=== PATIENT | female | born 1965 | race Caucasian/White ===

== ENCOUNTER → 2016-10-02 | Outpatient (CLI) | payer OTHER ==
[~2016-10-02] MED LIST: MONT1TAB3 PO; MTR600X PO; MULT-506 PO; OXYC-57 PO
[2016-10-02 12:15] LABS: BLOOD UREA NITROGEN 16 mg/dl (7-18); BUN/CREATININE RATIO 17.6 (10-20); CALCIUM 8.7 mg/dl (8.5-10.1); CARBON DIOXIDE 27 mmol/L (21-32); CHLORIDE 110 mmol/L (98-107); CHOLESTEROL 206 mg/dl (0-200); CREATININE 0.91 mg/dl (0.60-1.20); GLUCOSE 97 mg/dl (70-99); SODIUM 144 mmol/L (136-145)
[2016-10-02 12:18] LABS: CHOLESTEROL/HDL RATIO 5.9; HDL CHOLESTEROL 35 mg/dl; LDL CHOLESTEROL CALCULATED 119 mg/dl; TRIGLYCERIDES 258 mg/dl (0-150); VERY LOW DENSITY LIPOPROT CALC 52 mg/dl
== END | disposition home or self-care (01) ==
LOC: C.LABPBG 08:56
PROVIDERS: ATTEND Family Medicine
DX: Z00.00 Encounter for general adult medical examination without abnormal findings (principal); Z13.220 Encounter for screening for lipoid disorders

== ENCOUNTER → 2017-09-17 | Outpatient (CLI) | payer OTHER ==
[2017-09-17 13:36] LABS: BLOOD UREA NITROGEN 18 mg/dl (7-18); CALCIUM 9.1 mg/dl (8.5-10.1); CARBON DIOXIDE 29 mmol/L (21-32); GLUCOSE 98 mg/dl (70-99); POTASSIUM 3.9 mmol/L (3.5-5.1); SODIUM 140 mmol/L (136-145)
[2017-09-17 13:40] LABS: CHOLESTEROL 226 mg/dl (0-200); LDL CHOLESTEROL CALCULATED 160 mg/dl
== END | disposition home or self-care (01) ==
LOC: C.LABPBG 08:40
PROVIDERS: ATTEND Family Medicine
DX: R79.82 Elevated C-reactive protein (CRP) (principal); E78.5 Hyperlipidemia, unspecified

== ENCOUNTER → 2017-10-07 | Outpatient (CLI) | payer OTHER ==
[2017-10-07 16:47] LABS: BASO % 0.3 %; BASO ABS # 0.03 K/uL (0-0.2); EOS % 3.8 %; HEMATOCRIT 37.2 % (37-47); HEMOGLOBIN 11.8 g/dL (12.0-16.0); IG# 0.03 K/uL (0.00-0.02); LYMPH % 27.3 %; LYMPH ABS # 2.84 K/uL (1.2-3.4); MEAN CORPUSCULAR HEMOGLOBIN 24.4 pg (25-34); MEAN CORPUSCULAR HGB CONC 31.7 g/dl (32-36); MEAN PLATELET VOLUME 11.2 fL (7.4-10.4); MONO ABS # 0.73 K/uL (0.11-0.59); NEUT % 61.3 %; NEUT ABS # 6.38 K/uL (1.4-6.5); PLATELET COUNT 303 K/uL (130-400); RED CELL DISTRIBUTION WIDTH CV 14.9 % (11.5-14.5); RED CELL DISTRIBUTION WIDTH SD 42.1 fL (36.4-46.3); WHITE BLOOD COUNT 10.41 K/uL (4.8-10.8)
== END | disposition home or self-care (01) ==
LOC: C.LABPBG 14:24
PROVIDERS: ATTEND Family Medicine
DX: M79.672 Pain in left foot (principal); M79.89 Other specified soft tissue disorders; L53.9 Erythematous condition, unspecified

== ENCOUNTER → 2017-10-25 | Outpatient (CLI) | payer OTHER ==
[2017-10-25 16:42] LABS: BASO % 0.6 %; BASO ABS # 0.07 K/uL (0-0.2); EOS % 3.8 %; EOS ABS # 0.45 K/uL (0-0.5); HEMATOCRIT 35.8 % (37-47); HEMOGLOBIN 11.3 g/dL (12.0-16.0); IG# 0.04 K/uL (0.00-0.02); LYMPH ABS # 2.88 K/uL (1.2-3.4); MEAN CELL VOLUME 76.3 fL (80-100); MEAN CORPUSCULAR HEMOGLOBIN 24.1 pg (25-34); MEAN CORPUSCULAR HGB CONC 31.6 g/dl (32-36); MEAN PLATELET VOLUME 10.8 fL (7.4-10.4); MONO % 6.8 %; MONO ABS # 0.82 K/uL (0.11-0.59); NEUT % 64.5 %; NEUT ABS # 7.73 K/uL (1.4-6.5); PLATELET COUNT 297 K/uL (130-400); RED CELL DISTRIBUTION WIDTH CV 15.3 % (11.5-14.5); RED CELL DISTRIBUTION WIDTH SD 42.6 fL (36.4-46.3); WHITE BLOOD COUNT 11.99 K/uL (4.8-10.8)
== END | disposition home or self-care (01) ==
LOC: C.LABPBG 14:35
PROVIDERS: ATTEND Family Medicine
DX: R10.2 Pelvic and perineal pain (principal); N93.9 Abnormal uterine and vaginal bleeding, unspecified

== ENCOUNTER → 2017-10-27 | Outpatient (CLI) | payer OTHER ==
--- NOTE | 2017-10-27 15:45 | DIAGNOSTIC IMAGING REPORT ---
PELVIC COMPLETE NON OB HISTORY: 51 years-old Female N93.9 Vaginal bleeding acute vaginal bleeding with history of prior hysterectomy. Patient also reports prior left-sided oophorectomy COMPARISON: None available TECHNIQUE: Multiple real-time sonographic images of the deep pelvic structures were obtained transabdominally and transvaginally assessing grayscale appearance, color and spectral flow FINDINGS: TRANSABDOMINAL: Uterus not visualized. Complex cystic structure about the right adnexum. Arterial inflow and venous outflow seen about the right ovary. TRANSVAGINAL: Left ovary and uterus are not visualized. Right ovary overall measures 9.8 x 9.2 x 10.3 cm with arterial inflow and venous outflow documented. There is a complex thick-walled hypoechoic lesion about the right adnexum measuring 7.5 x 8.2 x 8.0 cm with thin internal septations and diffuse internal low level echoes. No significant free pelvic fluid. IMPRESSION: 1. Prior hysterectomy and left-sided oophorectomy. 2. Complex lesion about the right ovary measuring up to 8.0 cm suggests endometrioma or hemorrhagic cyst. Follow-up pelvic ultrasound within 2 menstrual cycles or 8 weeks recommended to further evaluate. No evidence of ovarian torsion. The above report was generated using voice recognition software. It may contain grammatical, syntax or spelling errors. Electronically signed by: Gómez Musa M.D. 10/27/2017 3:44 PM Dictated Date/Time: 10/27/2017 3:39 PM
== END | disposition home or self-care (01) ==
LOC: C.ULTR 14:43
PROVIDERS: ATTEND Family Medicine
DX: N93.9 Abnormal uterine and vaginal bleeding, unspecified (principal); Z90.710 Acquired absence of both cervix and uterus; Z90.721 Acquired absence of ovaries, unilateral

== ENCOUNTER → 2018-01-03 | Outpatient (CLI) | payer OTHER ==
[~2018-01-03] MED LIST changes: +ASPI1TAB66 PO; +HYDR-5688 PO; +LORA-741 PO; -MTR600X PO; -OXYC-57 PO; +PROC10TA PO; +[UNRECOGNIZED DRUG - CODE] SL
[2018-01-03 16:47] LABS: MEAN PLATELET VOLUME 9.8 fL (7.4-10.4); PLATELET COUNT 171 K/uL (130-400)
[2018-01-03 16:59] LABS: ALBUMIN 3.2 gm/dl (3.4-5.0); ALKALINE PHOSPHATASE 93 U/L (45-117); ALT/SGPT 38 U/L (12-78); AST/SGOT 24 U/L (15-37); BLOOD UREA NITROGEN 13 mg/dl (7-18); CALCIUM 8.5 mg/dl (8.5-10.1); CARBON DIOXIDE 26 mmol/L (21-32); CREATININE 0.79 mg/dl (0.60-1.20); GLUCOSE 102 mg/dl (70-99); POTASSIUM 3.7 mmol/L (3.5-5.1); SODIUM 138 mmol/L (136-145); TOTAL PROTEIN 6.9 gm/dl (6.4-8.2)
[2018-01-03 17:19] LABS: BASO % 0.6 %; BASO ABS # 0.02 K/uL (0-0.2); EOS % 2.3 %; EOS ABS # 0.08 K/uL (0-0.5); HEMATOCRIT 29.4 % (37-47); HEMOGLOBIN 9.4 g/dL (12.0-16.0); LYMPH % 54.3 %; LYMPH ABS # 1.85 K/uL (1.2-3.4); MEAN CELL VOLUME 83.8 fL (80-100); MEAN CORPUSCULAR HEMOGLOBIN 26.8 pg (25-34); MONO % 7.6 %; MONO ABS # 0.26 K/uL (0.11-0.59); NEUT % 35.2 %; RED CELL DISTRIBUTION WIDTH CV 18.2 % (11.5-14.5); RED CELL DISTRIBUTION WIDTH SD 56.2 fL (36.4-46.3); WHITE BLOOD COUNT 3.41 K/uL (4.8-10.8)
== END | disposition home or self-care (01) ==
LOC: C.LABPBG 11:29
PROVIDERS: ATTEND Obstetrics & Gynecology Gynecologic Oncology
DX: N13.30 Unspecified hydronephrosis (principal); R42 Dizziness and giddiness; C56.1 Malignant neoplasm of right ovary

== ENCOUNTER → 2018-01-13 | Outpatient (CLI) | payer OTHER ==
[2018-01-13 13:44] LABS: HEMATOCRIT 32.6 % (37-47); HEMOGLOBIN 10.4 g/dL (12.0-16.0); MEAN CELL VOLUME 86.7 fL (80-100); MEAN CORPUSCULAR HEMOGLOBIN 27.7 pg (25-34); MEAN CORPUSCULAR HGB CONC 31.9 g/dl (32-36); MEAN PLATELET VOLUME 9.5 fL (7.4-10.4); PLATELET COUNT 211 K/uL (130-400); RED CELL DISTRIBUTION WIDTH CV 20.5 % (11.5-14.5); WHITE BLOOD COUNT 4.48 K/uL (4.8-10.8)
[2018-01-13 13:53] LABS: ALBUMIN 3.1 gm/dl (3.4-5.0); ALKALINE PHOSPHATASE 115 U/L (45-117); ALT/SGPT 24 U/L (12-78); AST/SGOT 15 U/L (15-37); BLOOD UREA NITROGEN 15 mg/dl (7-18); CALCIUM 8.4 mg/dl (8.5-10.1); CARBON DIOXIDE 26 mmol/L (21-32); CREATININE 0.84 mg/dl (0.60-1.20); GLUCOSE 97 mg/dl (70-99); POTASSIUM 3.8 mmol/L (3.5-5.1); SODIUM 139 mmol/L (136-145); TOTAL PROTEIN 7.4 gm/dl (6.4-8.2)
[2018-01-13 14:34] LABS: BASO % 0.4 %; BASO ABS # 0.02 K/uL (0-0.2); EOS % 1.3 %; EOS ABS # 0.06 K/uL (0-0.5); IG# 0.01 K/uL (0.00-0.02); LYMPH % 50.4 %; LYMPH ABS # 2.26 K/uL (1.2-3.4); MONO % 5.6 %; MONO ABS # 0.25 K/uL (0.11-0.59); NEUT % 42.1 %; NEUT ABS # 1.88 K/uL (1.4-6.5)
== END | disposition home or self-care (01) ==
LOC: C.LABPBG 07:54
PROVIDERS: ATTEND Obstetrics & Gynecology Gynecologic Oncology
DX: C56.1 Malignant neoplasm of right ovary (principal)

== ENCOUNTER → 2018-01-24 | Outpatient (CLI) | payer OTHER ==
[2018-01-24 17:17] LABS: HEMATOCRIT 31.5 % (37-47); HEMOGLOBIN 10.2 g/dL (12.0-16.0); MEAN CELL VOLUME 87.7 fL (80-100); MEAN CORPUSCULAR HEMOGLOBIN 28.4 pg (25-34); MEAN CORPUSCULAR HGB CONC 32.4 g/dl (32-36); MEAN PLATELET VOLUME 10.1 fL (7.4-10.4); PLATELET COUNT 349 K/uL (130-400); RED CELL DISTRIBUTION WIDTH CV 20.8 % (11.5-14.5); RED CELL DISTRIBUTION WIDTH SD 66.6 fL (36.4-46.3); WHITE BLOOD COUNT 29.34 K/uL (4.8-10.8)
[2018-01-24 17:36] LABS: ALBUMIN 3.2 gm/dl (3.4-5.0); ALKALINE PHOSPHATASE 139 U/L (45-117); ALT/SGPT 27 U/L (12-78); AST/SGOT 20 U/L (15-37); BLOOD UREA NITROGEN 8 mg/dl (7-18); CALCIUM 8.6 mg/dl (8.5-10.1); CARBON DIOXIDE 25 mmol/L (21-32); GLUCOSE 104 mg/dl (70-99); POTASSIUM 3.5 mmol/L (3.5-5.1); SODIUM 138 mmol/L (136-145); TOTAL PROTEIN 7.2 gm/dl (6.4-8.2)
== END | disposition home or self-care (01) ==
LOC: C.LABPBG 12:10
PROVIDERS: ATTEND Obstetrics & Gynecology Gynecologic Oncology
DX: C56.1 Malignant neoplasm of right ovary (principal)

== ENCOUNTER → 2018-02-03 | Outpatient (CLI) | payer OTHER ==
[2018-02-03 13:02] LABS: BASO % 0.9 %; BASO ABS # 0.06 K/uL (0-0.2); EOS % 0.6 %; EOS ABS # 0.04 K/uL (0-0.5); HEMATOCRIT 32.8 % (37-47); HEMOGLOBIN 10.3 g/dL (12.0-16.0); IG# 0.04 K/uL (0.00-0.02); LYMPH ABS # 2.36 K/uL (1.2-3.4); MEAN CELL VOLUME 89.6 fL (80-100); MEAN CORPUSCULAR HEMOGLOBIN 28.1 pg (25-34); MEAN CORPUSCULAR HGB CONC 31.4 g/dl (32-36); MEAN PLATELET VOLUME 9.8 fL (7.4-10.4); MONO % 9.5 %; MONO ABS # 0.66 K/uL (0.11-0.59); NEUT % 54.4 %; NEUT ABS # 3.78 K/uL (1.4-6.5); PLATELET COUNT 191 K/uL (130-400); RED CELL DISTRIBUTION WIDTH CV 22.2 % (11.5-14.5); WHITE BLOOD COUNT 6.94 K/uL (4.8-10.8)
[2018-02-03 15:33] LABS: ALBUMIN 3.1 gm/dl (3.4-5.0); ALKALINE PHOSPHATASE 108 U/L (45-117); ALT/SGPT 19 U/L (12-78); AST/SGOT 13 U/L (15-37); BLOOD UREA NITROGEN 10 mg/dl (7-18); CALCIUM 8.9 mg/dl (8.5-10.1); CARBON DIOXIDE 25 mmol/L (21-32); CREATININE 0.77 mg/dl (0.60-1.20); GLUCOSE 124 mg/dl (70-99); POTASSIUM 3.6 mmol/L (3.5-5.1); SODIUM 142 mmol/L (136-145); TOTAL PROTEIN 7.5 gm/dl (6.4-8.2)
== END | disposition home or self-care (01) ==
LOC: C.LABPBG 07:58
PROVIDERS: ATTEND Obstetrics & Gynecology Gynecologic Oncology
DX: C56.1 Malignant neoplasm of right ovary (principal)